=== PATIENT | female | born 1995 | race Caucasian/White ===

== ENCOUNTER 2019-11-02 06:44 | Emergency (ER) | payer SELFPAY ==
[~2019-11-02] VITALS: Ht 160 cm; Wt 56.7 kg
--- NOTE | 2019-11-02 06:44 | NUR ---
Pt ambulated to [facility]. Accompanied by [facility].
[2019-11-02 06:47] VITALS: BP 130/89
[2019-11-02] MEDS ORDERED: NACL 0.9% 1,000 ML IV ONE (07:25)
--- NOTE | 2019-11-02 07:36 | NUR ---
PT MOVED TO BED 4, IV INSERTED AND BOLUS NACL STARTED
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
--- NOTE | 2019-11-02 07:44 | NUR ---
pt going to xray via wheelchair
--- NOTE | 2019-11-02 07:55 | NUR ---
Pt is back from x-ray and in bed 4. Pt reconnected to IV fluids, pt tolerating well. Warm blanket provided. [facility] at bedside. O2 Sat 98% and HR 86.
--- NOTE | 2019-11-02 08:19 | NUR ---
Patient discharged with v/s stable. Written and verbal after care instructions given and explained. Patient verbalized understanding. Pt discharged in custody of P. All questions addressed prior to discharge. Advised to follow up with PMD.
--- NOTE | 2019-11-02 08:19 | NUR ---
pt is not homeless, homeless assessment not done
[2019-11-02 08:22] VITALS: BP 119/84
== END 2019-11-02 08:19 ==
LOC: MED 06:44
DX: S20.319A Abrasion of unspecified front wall of thorax, initial encounter (principal); R07.89 Other chest pain; F10.10 Alcohol abuse, uncomplicated; V49.49XA Driver injured in collision with other motor vehicles in traffic accident, initial encounter; Y93.89 Activity, other specified; Y92.410 Unspecified street and highway as the place of occurrence of the external cause; Y99.8 Other external cause status
CPT/HCPCS: 71046; 81002; 81025; 93005; 99283; J7030